=== PATIENT | female | born 1935 | race Caucasian/White ===

== ENCOUNTER 2016-09-28 07:45 | Emergency (ER) | payer MEDICARE ==
[~2016-09-28] VITALS: Ht 157.5 cm; Wt 56.9 kg
[~2016-09-28 07:45] MED LIST: HYDR-4246 PO
[2016-09-28 07:48] VITALS: TEMP 98; Ht 157.5 cm; Wt 56.9 kg
--- OUTSIDE RECORDS SUMMARY | 2016-09-28 07:50 | XMS REPORT | Referral Summary ---
Author Author [facility], [facility] Organization [facility] Address Unknown Phone Unavailable Care Team Providers Care Marketing Operations Consultant Name Role Phone Jeffry Cuellar Primary Care Physician [phone] Encounter VC Date(s): 07/12/16 - 07/12/16 [facility] [address] [place] [address]- Discharge Diagnosis: History of smoking Discharge Diagnosis: Osteopetrosis Discharge Diagnosis: Chronic coughing Discharge Diagnosis: Dizziness Discharge Disposition: 01-Home or Self Care Attending Physician: Jeffry Cuellar DO Admitting Physician: Jeffry Cuellar DO Vital Signs Most recent to 1 oldest [Reference Range]: Temperature Tympanic 36.4 degC [36.6-38.1 degC] *LOW* (07/12/16 1:07 PM) Peripheral Pulse 96 bpm Rate [60-100 bpm] (07/12/16 1:07 PM) Respiratory Rate 18 br/min [14-20 br/min] (07/12/16 1:07 PM) Blood Pressure 122/68 mmHg [90-140/60-90 mmHg] (07/12/16 1:07 PM) SpO2 96 % (07/12/16 1:07 PM) Problem List Condition Effective Dates Status Health Status Informant Allergies(Confirmed) Active Chronic pain Active syndrome(Confirmed) Constipation(Confirm Active ed) 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) ESOPHAGEAL Active REFLUX(Confirmed) Hepatitis/Jaundice(C Active onfirmed) Influenza- 03/20/11 Active inactivated(Confirme d)1 Low back Active pain(Confirmed) Lumbar Active spondylosis(Confirme d) Osteoporosis(Confirm Active ed) Lumbar herniated Active disc(Confirmed) Radiculitis Active Lumbar(Confirmed) Scoliosis(Confirmed) Active Spinal stenosis Active Lumbar W/ Neur(Confirmed) Spondylolisthesis(Co Active nfirmed) Chicken Active Pox(Confirmed) 1Comments: Given at [facility] Allergies, Adverse Reactions, Alerts No Known Medication Allergies Medications Centrum Silver Occuvite, Daily, 0 Refill(s) Start Date: 06/19/16 Status: Ordered omeprazole 20 mg oral delayed release capsule See Instructions, TAKE ONE CAPSULE BY MOUTH TWICE A DAY, # 180 caps, 1 Refill(s) , eRx: [facility] #[id number], TAKE ONE CAPSULE BY MOUTH TWICE A DAY Start Date: 01/30/16 Status: Ordered Reclast 5 mg/100 mL intravenous solution 5 mg 100 mL, IV, Once, 0 Refill(s) Start Date: 02/15/14 Status: Ordered Vitamin D3 0 Refill(s) Start Date: 06/19/16 Status: Ordered Results Hematology Most recent to 1 oldest [Reference Range]: WBC [4.8-10.8 7.2 10*3/uL 10*3/uL] (07/12/16 2:08 PM) RBC [4.00-5.20] 4.89 (07/12/16 2:08 PM) Hgb [12.0-16.0 12.2 gm/dL gm/dL] (07/12/16 2:08 PM) Hct [37.0-47.0 %] 41.1 % (07/12/16 2:08 PM) MCV [82.0-99.0 fL] 84.0 fL (07/12/16 2:08 PM) MCH [27.0-32.0 pg] 24.9 pg *LOW* (07/12/16 2:08 PM) MCHC [32.0-36.0 29.7 gm/dL gm/dL] *LOW* (07/12/16 2:08 PM) RDW [11.5-14.5 %] 13.9 % (07/12/16 2:08 PM) Platelet [150-400 245 10*3/uL 10*3/uL] (07/12/16 2:08 PM) MPV [8.8-14.8 fL] 13.1 fL (07/12/16 2:08 PM) Immature 0.1 % Granulocytes (07/12/16 2:08 PM) [0.0-1.0 %] Neutrophils [51-75 59 % %] (07/12/16 2:08 PM) Lymphocytes [20-46 21 % %] (07/12/16 2:08 PM) Monocytes [4-11 %] 11 % (07/12/16 2:08 PM) Eosinophils [0-4 %] 6 % *HI* (07/12/16 2:08 PM) Basophils [0-2 %] 3 % *HI* (07/12/16 2:08 PM) Neutro Absolute 4.27 [1.90-7.00] (07/12/16 2:08 PM) Lymph Absolute 1.52 [0.80-3.30] (07/12/16 2:08 PM) [place] Absolute 0.80 [0.30-1.00] (07/12/16 2:08 PM) Eos Absolute 0.43 [0.00-0.50] (07/12/16 2:08 PM) Baso Absolute 0.18 [0.00-0.20] (07/12/16 2:08 PM) Chemistry Most recent to 1 oldest [Reference Range]: Sodium Lvl [135-144 143 mEq/L mEq/L] (07/12/16 2:08 PM) Potassium Lvl 4.3 mEq/L [3.5-5.2 mEq/L] (07/12/16 2:08 PM) Chloride [99-111 104 mEq/L mEq/L] (07/12/16 2:08 PM) CO2 [22-31 mEq/L] 29 mEq/L (07/12/16 2:08 PM) AGAP [3-20] 10 (07/12/16 2:08 PM) BUN [10-20 mg/dL] 14 mg/dL (07/12/16 2:08 PM) Glucose Lvl [70-99 92 mg/dL mg/dL] (07/12/16 2:08 PM) Creatinine Lvl 0.81 mg/dL [0.57-1.11 mg/dL] (07/12/16 2:08 PM) eGFR [>60 mL/min] >60 mL/min 1 (07/12/16 2:08 PM) Calcium Lvl 9.6 mg/dL [8.9-10.5 mg/dL] (07/12/16 2:08 PM) Albumin Lvl [3.4-4.8 4.5 gm/dL gm/dL] (07/12/16 2:08 PM) Total Protein 7.0 gm/dL [6.0-7.6 gm/dL] (07/12/16 2:08 PM) Globulin [1.8-4.0 2.5 gm/dL gm/dL] (07/12/16 2:08 PM) ALT [0-55 U/L] 7 U/L (07/12/16 2:08 PM) AST [5-34 U/L] 21 U/L (07/12/16 2:08 PM) Alk Phos [40-150 68 U/L U/L] (07/12/16 2:08 PM) Bili Total [0.2-1.2 0.3 mg/dL mg/dL] (07/12/16 2:08 PM) TSH with Reflex Free 1.34 T4 [0.35-4.94] (07/12/16 2:08 PM) 1Result Comment: Multiply eGFR results by 1.21 for race. Immunizations Given and Recorded Vaccine Date Status Refusal Reason tetanus/diphth/pertuss (Tdap) adult/adol 12/28/10 Recorded influenza virus vaccine, inactivated1 03/07/16 Recorded influenza virus vaccine, inactivated2 03/30/15 Recorded influenza virus vaccine, inactivated 04/01/14 Recorded influenza virus vaccine, live 03/20/13 Given influenza virus vaccine, live 03/23/12 Given pneumococcal 23-polyvalent vaccine 03/23/12 Recorded varicella virus vaccine 05/15/15 Recorded 1Result Comment: [06/19/2016] Patient believes this was done in Mar. 2Result Comment: [03/31/2015] high-dose flu given Procedures Procedure Date Related Diagnosis Body Site Mammogram - screening1 04/13/15 Caudal 03/12/12 Caudal 12/03/11 Left L3-4 Tansforaminal 2011 bilateral gluteus medius and trochanteric 03/28/11 bursitis inj.2 Lt Lumbar Facet and S1 joint 02/14/11 CAUDAL 01/31/11 Back Surgery 1968 Colonoscopies Gall Bladder Hysterectomy 1No mammographic evidence of malignancy. Rescreen in 1 year recommended 2Dr. G. Social History Social History Type Response Smoking Status Former smoker; Date Last Use: Smoked off and on for 20 - 30 years. Usually 1/2 pack per day. Assessment and Plan Extracted from: Title: Office Visit Note Author: Jeffry Cuellar DO Date: 07/12/16 Assessment/Plan Chronic coughing 1. Her coughing is likely secondary to postnasal drip. 2. Recommended changing her oral antihistamine to a different medication. 3. Consider nasal steroid use twice a day. 4. Follow-up in 2 weeks for reevaluation, sooner for worsening presentation. 5. CT of the chest ordered for farther evaluation of chronic coughing in light of her significant smoking history. Ordered: CBC w/ Differential Comprehensive Metabolic Panel CT Thorax w/o Contrast Office Visit Level 4 Est 20975 TSH with Reflex Free T4 Dizziness 1. Dizziness is likely secondary to coughing spells. 2. CBC ordered to rule out anemia, complete metabolic profile to rule out electrolyte imbalance and TSH to rule out thyroid dysfunction. Ordered: CBC w/ Differential Comprehensive Metabolic Panel Office Visit Level 4 Est 43414 TSH with Reflex Free T4 History of smoking 1. CT of the chest secondary to significant smoking history and development of chronic coughing. Ordered: CBC w/ Differential Comprehensive Metabolic Panel Office Visit Level 4 Est 72576 TSH with Reflex Free T4 Osteopetrosis 1. Recent DEXA scan demonstrated worsening T score from -2.2 to -2.4 despite Reclast for the last 4-5 years. 2. We will discontinue Reclast. 3. We will check on her qualification for Prolia. We will discuss his father at next office visit. Ordered: CBC w/ Differential Comprehensive Metabolic Panel Office Visit Level 4 Est 46404 TSH with Reflex Free T4
--- OUTSIDE RECORDS SUMMARY | 2016-09-28 07:50 | XMS REPORT | Referral Summary ---
Author Author [facility], [facility] Organization [facility] Address Unknown Phone Unavailable Care Team Providers Care Bone Density Technician Name Role Phone Jeffry Cuellar Primary Care Physician [phone] Encounter VC Date(s): 08/21/16 - 08/21/16 [facility], [address] [place] [address]- Discharge Disposition: 01-Home or Self Care Attending Physician: Jeffry Cuellar DO Admitting Physician: Jeffry Cuellar DO Vital Signs Most recent to 1 oldest [Reference Range]: Temperature Tympanic 36.2 degC [36.6-38.1 degC] *LOW* (08/21/16 9:38 AM) Peripheral Pulse 91 bpm Rate [60-100 bpm] (08/21/16 9:38 AM) Blood Pressure 130/72 mmHg [90-140/60-90 mmHg] (08/21/16 9:38 AM) SpO2 92 % (08/21/16 9:38 AM) Problem List Condition Effective Dates Status Health [...] nfirmed) Chicken Active Pox(Confirmed) 1Comments: Given at [facility] Allergies, Adverse Reactions, Alerts No Known Medication Allergies Medications Centrum Silver Occuvite, Daily, 0 Refill(s) Start Date: 06/19/16 Status: Ordered omeprazole 20 mg oral delayed release capsule See Instructions, TAKE ONE CAPSULE BY MOUTH TWICE A DAY, # 180 caps, eRx: [facility] #[id number] Start Date: 08/05/16 Status: Ordered Reclast 5 mg/100 mL intravenous solution 5 mg 100 mL, IV, Once, 0 Refill(s) Start Date: 02/15/14 Status: Ordered Vitamin D3 0 Refill(s) Start Date: 06/19/16 Status: Ordered Results No data available for this section Immunizations Given and Recorded Vaccine Date Status [...] 1/2 pack per day. Assessment and Plan No data available for this section
--- OUTSIDE RECORDS SUMMARY | 2016-09-28 07:50 | XMS REPORT | Referral Summary ---
Author Author [facility], [facility] Organization [facility], [facility] Address Unknown Phone Unavailable Care Team Providers Care Potato Chip Sorter Name Role Phone Jeffry Cuellar Primary Care Physician [phone] Encounter VC Date(s): 02/24/15 - 02/24/15 [facility], [facility] [address] [place] [address] [place] [address]- Discharge Diagnosis: SENILE OSTEOPOROSIS Discharge Disposition: 01-Home or Self Care Attending Physician: Jeffry Cuellar DO Admitting Physician: Jeffry Cuellar DO Vital Signs Most recent to 1 oldest [Reference Range]: Temperature Tympanic 36.9 degC [36.6-38.1 degC] (02/24/15 11:27 AM) Peripheral Pulse 76 bpm Rate [60-100 bpm] (02/24/15 11:27 AM) Respiratory Rate 20 br/min [14-20 br/min] (02/24/15 11:27 AM) Blood Pressure 122/68 mmHg [90-140/60-90 mmHg] (02/24/15 11:27 AM) Problem List Condition Effective Dates Status [...] nfirmed) Chicken Active Pox(Confirmed) 1Comments: [facility] Allergies, Adverse Reactions, Alerts No Known Medication Allergies Medications omeprazole 20 mg oral delayed release capsule See Instructions, TAKE ONE CAPSULE BY MOUTH TWICE A DAY, # 180 caps, eRx: [facility] #[id number], TAKE ONE CAPSULE BY MOUTH TWICE A DAY Start Date: 08/01/15 Status: Ordered Reclast 5 mg/100 mL intravenous solution 100 mL, IV, Once, 0 Refill(s) Start Date: 02/15/14 Status: Ordered Zantac 150 oral tablet 1 tabs, Oral, Bedtime (once a day), # 30 tabs, 0 Refill(s) Start Date: 10/20/14 Status: Ordered Results No data available for this section Immunizations Vaccine Date Refusal Reason tetanus/diphth/pertuss (Tdap) adult/adol 12/28/10 influenza virus vaccine, inactivated1 03/30/15 influenza virus vaccine, inactivated 04/01/14 influenza virus vaccine, live 03/20/13 influenza virus vaccine, live 03/23/12 pneumococcal 23-polyvalent vaccine 03/23/12 varicella virus vaccine 05/15/15 1Result Comment: [03/31/2015] high-dose flu given Procedures Procedure Date Related Diagnosis Body Site Mammogram - screening1 04/13/15 Caudal 03/12/12 Caudal 12/03/11 Left L3-4 Tansforaminal 2012 bilateral gluteus medius and trochanteric 03/28/11 bursitis inj.2 Lt Lumbar Facet and S1 joint 02/14/11 CAUDAL 01/31/11 Back Surgery 1968 Colonoscopies Gall Bladder Hysterectomy 1No mammographic evidence of malignancy. Rescreen in 1 year [address] 2Dr. G. Social History Social History Type Response Smoking Status Former smoker Assessment and Plan No data available for this section
--- OUTSIDE RECORDS SUMMARY | 2016-09-28 07:50 | XMS REPORT | Referral Summary ---
Author Organization Unknown Address Unknown Phone Unavailable Care Team Providers Care Pickle Solution Maker Name Role Phone Jeffry Cuellar Primary Care Physician [phone] Encounter VC Date(s): 10/20/14 - 10/20/14 [facility], [address] [place] [address] Discharge Diagnosis: GERD (gastroesophageal reflux disease) Discharge Diagnosis: Esophageal dysphagia Discharge Disposition: Home or Self Care Attending Physician: Jeffry Cuellar DO Admitting Physician: Jeffry Cuelalr DO Vital Signs Most recent to 1 oldest [Reference Range]: Temperature Tympanic 35.9 degC [36.6-38.1 degC] *LOW* (10/20/14 9:19 AM) Peripheral Pulse 120 bpm Rate [60-100 bpm] *HI* (10/20/14 9:19 AM) Blood Pressure 119/60 mmHg [90-140/60-90 mmHg] (10/20/14 9:19 AM) Problem List Condition Effective Dates Status [...] nfirmed) Chicken Active Pox(Confirmed) 1Comments: Given at [facility] Allergies, Adverse Reactions, Alerts No Known Medication Allergies Medications omeprazole 20 mg oral delayed release capsule See Instructions, TAKE ONE CAPSULE BY MOUTH EVERY DAY BEFORE A MEAL, # 90 caps, 2 Refill(s), eRx: [facility] #[id number], TAKE ONE CAPSULE BY MOUTH EVERY DAY BEFORE A MEAL Special Instructions: TAKE ONE CAPSULE BY MOUTH EVERY DAY BEFORE A MEAL Start Date: 12/16/13 Status: Ordered Reclast 5 mg/100 mL intravenous solution 100 mL, IV, Once, 0 Refill(s) Start Date: 02/15/14 Status: Ordered Zantac 150 oral tablet 1 tabs, Oral, Bedtime (once a day), # 30 tabs, 0 Refill(s) Start Date: 10/20/14 Status: Ordered Results No data available for this section Immunizations Vaccine Date Refusal Reason tetanus/diphth/pertuss (Tdap) adult/adol 12/28/10 influenza virus vaccine, inactivated 04/01/14 influenza virus vaccine, live 03/20/13 influenza virus vaccine, live 03/23/12 pneumococcal 23-polyvalent vaccine 03/23/12 Procedures Procedure Date Related Diagnosis Body Site Caudal 03/12/12 Caudal 12/03/11 Left L3-4 Tansforaminal 2012 bilateral gluteus medius and trochanteric 03/28/11 bursitis inj.1 Lt Lumbar Facet and S1 joint 02/14/11 CAUDAL 01/31/11 Back Surgery 1968 Colonoscopies Gall Bladder Hysterectomy 1Dr. G. Social History Social History Type Response Smoking Status Former smoker Assessment and Plan Extracted from: Title: Office Visit Note Author: Jeffry Cuellar DO Date: 10/20/14 Assessment/Plan Esophageal dysphagia 1. We will refer the patient to Dr. Martin for further evaluation to determine if she meets criteria for EGD. 2. In the interim time, diet modification with small bites and ensuring that she is chewing her food well was recommended. 3. If she has an episode of food getting stuck and she can get it down and I recommended she goes to the emergency department for evaluation. Ordered: Office Visit Level 3 Est 50494 GERD (gastroesophageal reflux disease) 1. Continue with omeprazole 20 mg twice a day. 2. May add Zantac 150 mg twice a day. 3. Continue with diet modification. 4. She may consider raising the head of her bed with a break to see if it helps controlling her acid reflux at nighttime. 5. Referral to Dr. Martin for further evaluation. Ordered: Office Visit Level 3 Est 69270
--- OUTSIDE RECORDS SUMMARY | 2016-09-28 07:50 | XMS REPORT | Referral Summary ---
Author Author [facility] Organization [facility] Address Unknown Phone Unavailable Care Team Providers Care Powerhouse Attendant Name Role Phone Jeffry Cuellar Primary Care Physician [phone] Encounter VC Date(s): 07/26/16 - 07/26/16 [facility] [address] [place] [address]- Discharge Diagnosis: Chronic coughing Discharge Diagnosis: Actinic keratosis Discharge Diagnosis: Esophageal dysphagia Discharge Diagnosis: Hiatal hernia Discharge Disposition: 01-Home or Self Care Attending Physician: Jeffry Cuellar DO Admitting Physician: Jeffry Cuellar DO Vital Signs Most recent to 1 oldest [Reference Range]: Temperature Tympanic 36.8 degC [36.6-38.1 degC] (07/26/16 10:19 AM) Peripheral Pulse 92 bpm Rate [60-100 bpm] (07/26/16 10:19 AM) Respiratory Rate 16 br/min [14-20 br/min] (07/26/16 10:19 AM) Blood Pressure 138/62 mmHg [90-140/60-90 mmHg] (07/26/16 10:19 AM) SpO2 96 % (07/26/16 10:19 AM) Problem List Condition Effective Dates Status [...] nfirmed) Chicken Active Pox(Confirmed) 1Comments: Given at [facility] Allergies, Adverse Reactions, Alerts No Known Medication Allergies Medications Centrum Silver Occuvite, Daily, 0 Refill(s) Start Date: 06/19/16 Status: Ordered omeprazole 20 mg oral delayed release capsule See Instructions, TAKE ONE CAPSULE BY MOUTH TWICE A DAY, # 180 caps, 1 Refill(s) , eRx: [facility] #[id number], TAKE ONE CAPSULE BY MOUTH TWICE A [...] Visit Note Author: Jeffry Cuellar DO Date: 07/26/16 Assessment/Plan 1.Esophageal dysphagia 1. Chest CT done last week demonstrate large hiatal hernia with two thirds of her stomach into the thoracic cavity. 2. If she continues to have recurrent symptoms then we plan on sending her to Dr. Martin for farther evaluation and recommendation. 3. Omeprazole 20 mg twice a day. 4. Add Zantac 75 mg at bedtime. 5. Consider elevating head of bed for better controlled acid reflux. 6. Avoid laying down at least 2 hours after meals. Ordered: Office Visit Level 4 Est 21164 2.Hiatal hernia 1. Findings and recommendations as above. Ordered: Office Visit Level 4 Est 65086 3.Chronic coughing 1. Chronic coughing was likely secondary to poorly controlled acid reflux. 2. Recommendations and dietary changes as above. Ordered: Office Visit Level 4 Est 11116 4.Actinic keratosis 1. A total of 5 actinic keratosis lesions were treated. Wound care instructions provided. Ordered: Office Visit Level 4 Est 70854
--- NOTE | 2016-09-28 08:12 | NUR ---
EKG EKG TAKEN AND GIVEN TO DR ZUÑIGA
[2016-09-28] MEDS ORDERED: RANI150T12 PO (08:15)
[2016-09-28] MEDS ORDERED: OMEP20CA10 PO (08:15)
--- NOTE | 2016-09-28 08:22 | NUR ---
RADIOLOGY RADIOLOGY IN ROOM FOR PORTABLE FILMS
--- NOTE | 2016-09-28 08:30 | ERPDOC ---
Departure Disposition Decision Date: Sep 28, 2016 Disposition Decision Time: 09:37 Disposition: 01 DISCHARGED HOME, SELF-CARE Impression Impression Impression: Primary Impression: Sprain of scapholunate ligament Encounter type: initial encounter Laterality: left Qualified Codes: S63.512A - Sprain of carpal joint of left wrist, initial encounter Severity: Mild Condition: Improved Seen By: Physician only Referrals: MALLORIE PALMER DO (Family) [facility] 2 Days Patient Instructions: Wrist Injury (ED) Problems/Meds/Labs Reviewed?: Yes Medications reviewed and manag: Yes Follow up care ordered?: Yes Mental Status: Alert, Oriented Scripts Hydrocodone/Acetaminophen (Hasty 5-325 Tablet) 5-325 Tablet 1 TAB PO Q4HR Y for PAIN for 3 Days, #18 TAB 0 Refills Prov: GABBY ZUÑIGA DO 09/28/16 HPI - Upper Extremity General Chief Complaint: Upper Extremity Pain Stated Complaint: LEFT ARM PAIN Time Seen by MD: 08:00 Source: patient Exam Limitations: no limitations HPI - Upper Extremity Initial Comments 80-year-old female presents to the emergency department with a chief complaint of pain in the left wrist. Patient notes that she did suffer a mechanical fall approximately 1 month ago which has resulted in pain since the fall. Patient did not get evaluated with x-rays after the incident. Patient states she has been walking a family member's dog over the past couple of days using the left hand and the dog has been pulling hard on the left wrist and hand. Patient describes her pain as dull. Pain is moderate. No radiation of pain. Pain increases with movement or direct palpation of the affected area. Patient denies any other injuries. No other complaints or associated symptoms. Patient specifically denies chest pain or shortness of breath. Patient states that she did note an increase in her pain at approximately 1 AM this morning. Patient was at home when her symptoms began. Symptoms have been persistent in nature with a gradual progression. Allergies: Coded Allergies: No Known Allergies (Unverified , 09/28/16) Past History Past Medical History GI: GERD, gallbladder disease Musculoskeletal: back pain, other Surgical History General: back, gallbladder Reproductive/: hysterectomy, tubal ligation Family History Family History: Negative Family PMH: FOUND: other Social History Smoking Status: Never smoker Substance Use Type: does not use Alcohol Intake: none Review of Systems Constitutional Constitutional: DENIES: chills, fever Eyes General: DENIES: erythema, exudate Lids/Accessories: DENIES: erythema, swelling Vision: DENIES: acuity, blurring ENMT Ears: DENIES: drainage, pain Balance: DENIES: ataxia, falling to one side Sinuses: DENIES: congestion, pain Nose: DENIES: nosebleeds, pain Mouth/Throat: DENIES: painful swallowing, sore throat Teeth: DENIES: pain Jaw: DENIES: pain Cardiovascular Cardiac: DENIES: chest pain, dyspnea on exertion Rhythm/Rate: DENIES: irregular beat, palpitations Vascular: DENIES: pedal edema, unilateral swelling Pulmonary Respiratory: DENIES: cough, dyspnea, pleuritic chest pain, sputum GI Upper Abdomen: DENIES: nausea, pain, vomiting Lower Abdomen: DENIES: diarrhea, pain General: DENIES: dysuria, pain Musculoskeletal General: joint pain, pain, tenderness Integumentary Skin: DENIES: itching, rash Neurological General: DENIES: headache, numbness, weakness Psychiatric Psychiatric: DENIES: emotional instability, nervousness, suicidal ideation/ attempt Endocrine Endocrine: DENIES: polydipsia, polyphagia Hematologic/Lymphatic Hematologic/Lymphatic: DENIES: frequent nosebleeds, lymphadenopathy Allergic/Immunological Allergic/Immunoligical: DENIES: allergic reactions, hives Physical Exam General General Nourishment: well nourished, well developed, appears stated age, no acute distress, adult General Body Habitus: well groomed Vitals and Pain First Documented Vital Signs Date Time Temp Pulse Resp B/P Pulse Ox O2 Delivery O2 Flow Rate FiO2 09/28/16 07:48 98.0 94 18 156/78 96 Room Air Weight: Kilograms: 56.900 Height (feet): 5 Height (inches): 2.00 Triage Pain Scale: RN VS reviewed by Provider: Yes Normal Exams: Head: Normocephalic w/o trauma Eyes: Pupils are PERRLA w/ EOMI, No scleral icterus, irritation, or foreign bodies noted ENMT: No facial trauma, nasal exudates, pharyngeal erythema, or exudates are noted Dental: No fractured, loose, or missing teeth noted Neck: Full range of motion, without adenopathy, JVD, bruits or thyromegaly Chest/Resp: Clear all arriaza, with good airflow, and symmetry bilaterally CV: Regular rate and rhythm, without murmur or gallop, Pulses 2+ all extremities, capillary refill, <2 seconds all ext., no pedal edema noted Abdomen: Bowel sounds positive, soft, non-tender, non-distended, no hepatosplenomegaly, masses or bruits noted Lymphatic: No lymphadenopathy, or lymphedema noted Musculoskeletal: or deformity noted, good range of motion, all extremities Integumentary: No rashes, hives, or bruising noted, hair and nails, without abnormality Neurologic: Patient is alert, and oriented, cranial nerves, motor/sensory/ cerebellar, exams w/o gross deficits, to observation Psychiatric: Patient exhibits, appropriate attention, emotion and affect Musculoskeletal (brief) Comments L wrist - diffusely tender to palpation. No anatomic snuffbox tenderness. Pulses intact. Sensation intact. Capillary refill less than 2. No erythema. Trace edema. No focal bony tenderness. No other tenderness in the left upper extremity. Skin is intact. All other extremities are unremarkable. Differential Diagnoses Considering: Contusion, Dislocation, Fracture, Sprain, Strain Progress Results/Orders Orders Procedure Category Date Status Time Hand Left 3 View RAD 09/28/16 Taken 08:00 Wrist Left 3-4 Views RAD 09/28/16 Taken 08:00 Radius/Ulna Left 2 RAD 09/28/16 Taken View 08:00 EKG EKG 09/28/16 Taken Hydrocodone/Acetaminophen PHA 09/28/16 In Process (Hasty 5/325) 09:45 Medications Current ED Medications Acetaminophen/ Hydrocodone Bitart (Hasty 5/325) 1 tab O ONCE PO ; Start at 09:45; Stop 09/28/16 at 09:46 Progress Progress Imaging is discussed in detail with the patient and family and questions are answered. Patient is given analgesic pain medication with improvement of symptoms in the emergency department. Patient is discussed with orthopedics on- call and imaging is reviewed in detail with orthopedics who recommended placing the patient in a thumb spica splint and follow-up with them. X-rays are reviewed by orthopedics. Patient is in agreement with the current plan of management. She is discharged home in improved condition. She is to follow up as instructed. Patient is to return to the emergency Department if her condition worsens or changes in any manner. Patient was placed in a thumb spica splint/sling with good alignment by the RN. Patient was distal neurovascular intact post-application of splint/sling. Prescription for Hasty was provided. EKG EKG : Rate: 60-100 Rhythm: sinus [place]: normal QRS: normal Intervals: normal ST/T: normal Interpreted by: signing physician Xray Xray : Xray: Hand L Interpretation: Normal, Interpreted by Me (left hand shows osteoarthritic changes. Left wrist: Questionable widening of the scapholunate joint. Otherwise no acute fractures. Left radius/ulna: Negative.), Reviewed Written Report GABBY ZUÑIGA DO Sep 28, 2016 08:30
--- NOTE | 2016-09-28 09:35 | NUR ---
CONSULT DR ZUÑIGA TALKING WITH ORTHO
[2016-09-28] MEDS ORDERED: HYDR-4246 PO (09:40)
--- NOTE | 2016-09-28 09:40 | NUR ---
SPLINT THUMB SPICA PLACED WITH ORTHOGLASS SPLINT MATERIAL. NEUROS INTACT POST SPLINT
[2016-09-28] MEDS ORDERED: HYDROCODONE/APAP 5 mg/325 mg TABLET PO ONE (09:45)
--- NOTE | 2016-09-28 09:50 | NUR ---
SLING SLING TO LEFT ARM PLACED
--- NOTE | 2016-09-28 09:55 | NUR ---
DISMISSAL DISMISSAL INSTRUCTIONS TO PT AND WITH RX X1. NO FURTHER QUESTIONS AT THIS TIME. PT LEFT DEPARTMENT AMBUALT[facility]
[2016-09-28 10:06] VITALS: BP 134/71; PULSE 78; RESP 16; O2SAT 96
--- NOTE | 2016-09-29 09:42 | DI ---
Indication: ITS.REASON: Fall with left forearm pain, injury PROCEDURE: RADIUS/ULNA LEFT 2 VIEW: Encounter: Initial Comparison: None Findings: There is no acute fracture, dislocation or malalignment identified. Severe degenerative change in the first carpometacarpal joint. 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 Impression: No acute osseous abnormality. There is a preliminary report by [facility]. .
--- NOTE | 2016-09-29 09:48 | DI ---
Indication: ITS.REASON: Left wrist pain, injury PROCEDURE: WRIST LEFT 3-4 VIEWS: Encounter: Initial Comparison: None Findings: No acute fracture or dislocation seen. Severe degenerative change in the first carpometacarpal and triscaphe joints. Calcification of the TFCC. The scapholunate interval appears widened at 5 mm. Impression: No acute osseous abnormality. Widened scapholunate interval could be due to scapholunate ligament tear. Chronicity is undetermined. There is a preliminary report by [facility]. .
--- NOTE | 2016-09-29 09:49 | DI ---
Indication: ITS.REASON: pain, injury PROCEDURE: HAND LEFT 3 VIEW: Encounter: Initial Comparison: Left wrist radiographs from the same time Findings: No acute fracture or dislocation seen. Degenerative change at the second and third metacarpophalangeal joints and advanced degenerative change at the first carpometacarpal joint. Chondrocalcinosis of the TFC. Slight widening of the scapholunate interval better seen on the wrist radiographs. Impression: No acute fracture. There is a preliminary report by [facility]. .
== END 2016-09-28 09:55 | disposition home or self-care (01) ==
LOC: ED 07:45
DX: S63.512A Sprain of carpal joint of left wrist, initial encounter (principal); W19.XXXA Unspecified fall, initial encounter; Y93.9 Activity, unspecified; Y92.9 Unspecified place or not applicable; Y99.8 Other external cause status
CPT/HCPCS: 93005